=== PATIENT | male | born 1970 | race Two or more races ===

== ENCOUNTER 2017-03-02 19:45 | Emergency (ER) | payer MEDICAID ==
[~2017-03-02] VITALS: Ht 175.3 cm; Wt 74.8 kg
[2017-03-02 19:45] VITALS: BP 138/78
[2017-03-02] MEDS ORDERED: Ketorolac 60mg Inj IM ONE (20:00)
[2017-03-02] MEDS ORDERED: Methocarbamol 750mg tab ORAL ONE (20:00)
[2017-03-02] MEDS ORDERED: IBUPROFEN600 MG ORAL (20:58)
[2017-03-02] MEDS ORDERED: ROBAXIN-750750 MG PO (20:58)
--- NOTE | 2017-03-02 21:07 | Emergency Room Report ---
History of Present Illness General Chief Complaint: Lower Extremity Injury Source: Patient Present Illness HPI Patient a 46-year-old male presenting for lower back pain which began 2 days prior. He states that he thinks he may have strained a muscle. Pain is an 8/ 10 dull ache to the right lower back and is worse with movement such as twisting and bending. He denies any numbness or tingling. He denies radiating pain. He denies any other symptoms including nausea, vomiting, fever, chills, abdominal pain, incontinence Allergies: Coded Allergies: No Known Allergies (Unverified , 03/02/17) Patient History Past Medical History: see triage record Pertinent Family History: none Reviewed Nursing Documentation: PMH: Agreed, PSxH: Agreed Nursing Documentation-PMH Past Medical History: No Stated History Review of Systems All Other Systems: negative except mentioned in HPI Physical Exam Vital Signs Date Time Temp Pulse Resp B/P (MAP) Pulse Ox O2 Delivery O2 Flow Rate FiO2 03/02/17 19:40 98.8 72 18 105/68 99 Room Air Sp02 EP Interpretation: reviewed, normal General Appearance: no apparent distress, alert, GCS 15, non-toxic Head: normocephalic, atraumatic Eyes: bilateral eye normal inspection, bilateral eye PERRL ENT: hearing grossly normal, normal pharynx, no angioedema, normal voice Musculoskeletal: normal inspection, normal range of motion, tender - R lumbar parspinal muscles Neurologic: alert, oriented x3, responsive, motor strength/tone normal, sensory intact, speech normal Psychiatric: judgement/insight normal, memory normal, mood/affect normal, no suicidal/homicidal ideation Skin: normal color, no rash, warm/dry, well hydrated Lymphatic: no adenopathy Medical Decision Making PA Attestation Dr. Davalos is my supervising physician. Patient management was discussed with my supervising physician Diagnostic Impression: Primary Impression: Muscle strain ER Course Patient a 46-year-old male presenting for lower back pain Ddx considered include but not limited to lumbar strain, degenerative disease, epidural abscess, cauda equina, chronic pain, narcotic dependency. PE: No apparent distress There is tenderness to palpation over right lumbar paraspinal muscles only. No midline tenderness Normal gait The patient is given Toradol and Robaxin in the ER and feels better He'll be discharged home with Motrin and Robaxin. ER precautions are given Last Vital Signs Date Time Temp Pulse Resp B/P (MAP) Pulse Ox O2 Delivery O2 Flow Rate FiO2 03/02/17 19:40 98.8 72 18 105/68 99 Room Air Status: improved Disposition: HOME, SELF-CARE Condition: Improved Scripts Methocarbamol* (ROBAXIN-750*) 750 Mg Tablet 750 MG PO TID, #21 TAB 0 Refills Prov: JORGE THURSTON.AClifton 03/02/17 Ibuprofen* (MOTRIN*) 600 Mg Tablet 600 MG ORAL Q8H Y for For Pain, #30 TAB 0 Refills Prov: JORGE THURSTON P.A. 03/02/17 Patient Instructions: Muscle Strain Additional Instructions: I discussed my findings with the patient. All questions and concerns have been answered. Treatment and medication compliance have been addressed. I advised the patient that they need to follow up with PMD in 3-5 days. Return to ED if symptoms worsen, new symptoms arise, or if needed for any reason. Patient verbalized understanding of discharge instructions. JORGE THURSTON Mar 02, 2017 21:07
[2017-03-02 21:25] VITALS: BP 120/70
[2017-03-02 21:30] VITALS: BP 120/70
== END 2017-03-02 21:30 | disposition home or self-care (01) ==
LOC: EDBD 19:45 → EMR 19:58
DX: S39.012A Strain of muscle, fascia and tendon of lower back, initial encounter (principal); X50.1XXA Overexertion from prolonged static or awkward postures, initial encounter; Y92.89 Other specified places as the place of occurrence of the external cause
CPT/HCPCS: 96372; 99284

== ENCOUNTER 2017-03-02 22:06 | Emergency (ER) | payer MEDICAID ==
[~2017-03-02] VITALS: Ht 175.3 cm; Wt 74.8 kg
[~2017-03-02 22:06] MED LIST: IBUPROFEN600 MG ORAL; ROBAXIN-750750 MG PO
[2017-03-02] MEDS ORDERED: Norco 5mg/325mg tab ORAL ONE (23:00)
[2017-03-02 23:48] LABS: APPEARANCE,URINE CLEAR; KETONES,URINE NEGATIVE (NEGATIVE); NITRITE,URINE NEGATIVE (NEGATIVE); PH,URINE 6 (4.5-8.0); UROBILINOGEN,URINE NORMAL MG/DL (0.0-1.0)
[2017-03-02 23:50] LABS: LEUKOCYTE ESTERASE ,URINE NEGATIVE (NEGATIVE); PROTEIN,URINE NEGATIVE (NEGATIVE)
[2017-03-03 00:26] VITALS: BP 114/77
--- NOTE | 2017-03-03 00:30 | Emergency Room Report ---
History of Present Illness General Chief Complaint: Lower Back Pain or Injury Source: Patient Present Illness HPI Is a 46-year-old male with history of back pain. He was seen earlier today. He was discharged with prescription for pain medication. He came back with chief complaint of increasing back pain and vomiting. He said he was on the bus going home when the pain came again. Pain was severe. Right side He said he was vomiting. 10 out of 10 pain. He still having pain now. No radiation. No continence was bowel or urine. Has not had vomiting. Allergies: Coded Allergies: No Known Allergies (Unverified , 03/02/17) Patient History Past Medical History: see triage record, old chart reviewed Past Surgical History: other Pertinent Family History: none Social History: Denies: smoking Immunizations: other Reviewed Nursing Documentation: PMH: Agreed, PSxH: Agreed Nursing Documentation-PMH Past Medical History: No Stated History Review of Systems Eye: Denies: eye pain, blurred vision ENT: Denies: ear pain, nose congestion, throat swelling Respiratory: Denies: cough, shortness of breath Cardiovascular: Denies: chest pain, palpitations Gastrointestinal: Denies: abdominal pain, diarrhea, nausea, vomiting Musculoskeletal: Reports: back pain, Denies: joint pain Skin: Denies: rash Neurological: Denies: headache, numbness Endocrine: Denies: increased thirst, increased urine Hematologic/Lymphatic: Denies: easy bruising All Other Systems: negative except mentioned in HPI Physical Exam Vital Signs Date Time Temp Pulse Resp B/P (MAP) Pulse Ox O2 Delivery O2 Flow Rate FiO2 03/02/17 22:09 97.7 85 18 114/77 98 Room Air vitals normal Sp02 EP Interpretation: reviewed, normal General Appearance: well appearing, no apparent distress, alert Head: normocephalic, atraumatic Eyes: bilateral eye PERRL, bilateral eye EOMI ENT: hearing grossly normal, normal pharynx Neck: full range of motion, supple, no meningismus Respiratory: chest non-tender, lungs clear, normal breath sounds Cardiovascular #1: regular rate, rhythm, no murmur Gastrointestinal: normal bowel sounds, non tender, no mass, no organomegaly, no bruit, non-distended Musculoskeletal: back normal, gait/station normal, normal range of motion Psychiatric: mood/affect normal Skin: warm/dry Medical Decision Making Diagnostic Impression: Primary Impression: Low back pain Qualified Codes: M54.5 - Low back pain Additional Impression: Amphetamine abuse ER Course Patient with back pain. He said he is vomiting but no vomiting here. He sleeping comfortably. I had to wake him up. When I woke him up he started grimacing and grabbing his back and pain. No red flags indicate cauda equina syndrome, spinal epidural abscess or neoplastic process. When I told patient of the finding and drug screen, he denies using drugs for a couple weeks now. He is walking without any difficulty. Did not wait for his paperwork. CT/MRI/US Diagnostic Results CT/MRI/US Diagnostic Results : Imaging Test Ordered: CT abdomen and pelvis Impression negative per Radiologist. Last Vital Signs Date Time Temp Pulse Resp B/P (MAP) Pulse Ox O2 Delivery O2 Flow Rate FiO2 03/02/17 22:09 97.7 85 18 114/77 98 Room Air Status: improved Disposition: HOME, SELF-CARE Condition: Stable Patient Instructions: Back Pain, Adult Additional Instructions: abstain from drugs and alcohol. Follow with your doctor in 7 days. Return if worse. SUZAN YANG M.D. Mar 03, 2017 00:30
--- NOTE | 2017-03-03 09:09 | Diagnostic Imaging Report ---
Indication: Abdominal pain Technique: Continuous helical transaxial imaging of the abdomen and pelvis was obtained from the lung bases to the pubic symphysis. No intravenous contrast was administered. Coronal 2-D reformats were also obtained. Total Dose length Product (DLP): [address] Dose Index Volume (CTDIvol): 2.15, 9.74 mGy Comparison: none Findings: The lung bases are clear. A tiny nonobstructive stone demonstrated within the lower pole the left kidney. There is no hydronephrosis. Gallbladder is partially contracted. No evidence of bowel obstruction. There are diverticula noted within the sigmoid region. There may be mild thickening of the urinary bladder wall. Please correlate clinically. Appendix not definitely seen and evaluation is limited as there is relative absence of abdominal fat and no oral contrast IV contrast was given. All of these factors decrease the sensitivity and specificity of appendicitis. That said, there no secondary signs of acute appendicitis identified. Minimal arterial vascular calcifications are noted within the aorta and iliac vessels. Impression: Tiny nonobstructive stone in the left kidney. Limited evaluation but no secondary signs of acute appendicitis. Mild atherosclerotic disease Diverticulosis of the colon. Mild thickening of the urinary bladder wall. Please correlate clinically for cystitis. [facility] has communicated the preliminary results to the Emergency Department. Their findings are largely concordant with this report. The CT scanner at [facility] is accredited by the [employer] and the scans are performed using dose optimization techniques as appropriate to a performed exam including Automatic Exposure control.
== END 2017-03-03 00:26 | disposition home or self-care (01) ==
LOC: EMR 22:45
DX: M54.5 Low back pain (principal); F15.10 Other stimulant abuse, uncomplicated; K57.30 Diverticulosis of large intestine without perforation or abscess without bleeding; N20.0 Calculus of kidney
CPT/HCPCS: 74176; 80300; 81003; 99284